=== PATIENT | female | born 1970 | race Caucasian/White ===

== ENCOUNTER 2024-04-15 08:15 | Emergency (ER) | payer OTHER ==
[2024-04-15 08:40] VITALS: TEMP 98.2; BMI 29.8
[2024-04-15] MEDS ORDERED: IBUPROFEN 600 MG TABLET (FP) PO ONE (09:12)
[2024-04-15] MEDS ORDERED: ACETAMINOPHEN 500 MG TABLET (FP) ONE (09:12)
[2024-04-15] MEDS ORDERED: PANTOPRAZOLE 40 MG TABLET PO ONE (09:14)
[2024-04-15] MEDS: IBUPROFEN 600 MG TABLET (FP) PO ONE (09:16)
[2024-04-15] MEDS: PANTOPRAZOLE 40 MG TABLET PO ONE (09:17)
[2024-04-15] MEDS: ACETAMINOPHEN 500 MG TABLET (FP) PO ONE (09:17)
[2024-04-15 10:31] VITALS: BP 170/97; PULSE 63; RESP 17
== END 2024-04-15 10:34 | disposition home or self-care (01) ==
LOC: JER 08:15
DX: S69.92XA Unspecified injury of left wrist, hand and finger(s), initial encounter (principal); W01.10XA Fall on same level from slipping, tripping and stumbling with subsequent striking against unspecified object, initial encounter
CPT/HCPCS: 73110-TC-LT-FY; 99283-25